=== PATIENT | male | born 1945 | race Caucasian/White ===

== ENCOUNTER 2025-01-27 15:21 | Emergency (ER) | payer OTHER, SELFPAY ==
[2025-01-27 15:29] VITALS: BP 177/78
--- NOTE | 2025-01-27 17:12 | ED.GENMED ---
History of Present Illness
<Rose Mock MD, Resident - Last Filed: 01/27/25 17:46>
General
Chief Complaint: Eye Problems
Source: patient and family
Exam Limitations: none
Time Seen by Provider: 01/27/25 16:53
Nursing documentation reviewed up to this point in time: agreed with
History of Present Illness
History of Present Illness:
79yo M with a hx of cataracts, CAD, HTN, COPD, & DM who presents with acute R eye pain.
Pt reports that he had his lens replaced about 10months ago (for cataracts, revision surgery). He was told the sutures used were dissolvable. This am while driving, the patient suddenly felt a scratchy, burning pain the R lateral eye. The pain
subsides when the eye is closed, painful (8/10) when open. Endorses watery tearing in eye, no purulent discharge or crusting. Endorses redness of the eye. Daughter says that she saw a black speck on the laterosuperior aspect of the R iris earlier
today. The pt applied lubricating eye drops earlier today, which made the burning worse. Denies any recent trauma to the eye / grit blowing into the eye. Denies any puritis of the eye or any vision changes/blurriness. Denies photophobia. Says it
feels like a suture is poking into his eye from inside.
The pt lives in [place] and is [place] from [place] of [place], has [facility] health insurance.
Past History
<Rose Mock MD, Resident - Last Filed: 01/27/25 17:46>
Past History
ED Past Medical History: CAD, COPD, Hypercholesterolemia and NIDDM
ED Past Surgical History: Other (bilat cataracts surgery )
Patient has exhibited threatening behavior?: No
Review of Systems
<Rose Mock MD, Resident - Last Filed: 01/27/25 17:46>
Review of Systems
Allergies reviewed?: Yes
All Other Systems: ROS reviewed and negative except as documented in HPI and ROS
Constitutional: Reports no symptoms
EENT: Reports tearing and other (R eye pain & redness)
Respiratory: Reports no symptoms
Cardiac: Reports no symptoms
ABD/GI: Reports no symptoms
: Reports no symptoms
Musculoskeletal: Reports no symptoms
Skin: Reports no symptoms
Neurological: Reports no symptoms
Psychiatric: Reports no symptoms
Phy Exam
<Rose Mock MD, Resident - Last Filed: 01/27/25 17:46>
General Physical Exam
General Presentation: mild distress
General age: appears stated age
General Skin: warm and dry
General Habitus: normal
General Mental: alert
Eye Exam
Eye Exam: PERRL, EOMI and other (R eye conjunctival injection; watery discharge; fluorescein exam reveals lateral corneal abrasion & speck of small, translucent protruding filament )
Cardiovascular Exam
Cardiovascular Exam: regular rate/rhythm
Pulmonary Exam
Pulmonary Exam: no respiratory distress
Gastrointestinal Exam
Gastrointestinal Exam: non distended
Neurological Exam
Neurological Exam: alert
Skin Exam
Skin Exam: normal color and warm/dry
Psychiatric Exam
Psychiatric Exam: normal mood/affect
Course
<Rose Mock MD, Resident - Last Filed: 01/27/25 17:46>
Vital Signs
Initial and Last Documented VS:
Initial Vital Signs
Temp Pulse Resp BP Pulse Ox
97.8 F 86 16 177/78 95
01/27/25 15:29 01/27/25 15:29 01/27/25 15:29 01/27/25 15:29 01/27/25 15:29
Last Documented Vital Signs
Temp Pulse Resp BP Pulse Ox
97.8 F 86 16 171/76 92
01/27/25 15:29 01/27/25 15:29 01/27/25 15:29 01/27/25 17:19 01/27/25 17:19
<Gerber Arndt, DO - Last Filed: 01/27/25 17:42>
Vital Signs
Initial and Last Documented VS:
Initial Vital Signs
Temp Pulse Resp BP Pulse Ox
97.8 F 86 16 177/78 95
01/27/25 15:29 01/27/25 15:29 01/27/25 15:29 01/27/25 15:29 01/27/25 15:29
Last Documented Vital Signs
Temp Pulse Resp BP Pulse Ox
97.8 F 86 16 171/76 92
01/27/25 15:29 01/27/25 15:29 01/27/25 15:29 01/27/25 17:19 01/27/25 17:19
<Rose Mock MD, Resident - Last Filed: 01/27/25 17:46>
MDM/Problems Addressed
Differential Diagnosis Includes:
Ddx:
Foreign body in eye (suture vs. grit)
Less likely:
Viral conjunctivitis
Acute angle closure glaucoma
Uveitis
Bacterial conjunctivitis
<Rose Mock MD, Resident - Last Filed: 01/27/25 17:46>
*Pulse Oximetry
SaO2: 95
Oxygen Mode of Delivery: Room air
Patient hypoxic: no
*Critical Care Note
Total Time (30-74mins, 75-104mins- exclusive of procedures): Not Applicable
<Rose Mock MD, Resident - Last Filed: 01/27/25 17:46>
Update Note
Update Note:
Small body not able to be removed with cotton swab under tetracaine
Pt should follow up with validation architect
Abx ppx in the meantime for abrasion, and eye patch for comfort
ED Attending Note
<Rose Mock MD, Resident - Last Filed: 01/27/25 17:46>
-
Portions of this chart may have been created with voice recognition software.� Occasional wrong word or��sound alike� substitutions may have occurred due to the inherent limitations of voice recognition software.
<Gerber Arndt, DO - Last Filed: 01/27/25 17:42>
ED Attending Note
Patient seen and examined by attending physician: Yes
I performed a history and physical exam of patient and discussed management with resident, I reviewed resident's note and agree with documented findings and plan of care.: Yes
ED Attending Note:
I have seen and evaluated the patient with a [id number] encounter. I have spoken to the resident and involved in the medical history, the physical exam, medical decision making.
Evaluation and management service: agree unless noted differently below.
Results interpretation: agree unless noted differently below.
Focused HPI: 79-year-old male presenting with right eye pain. Patient has a foreign body sensation. He had cataract surgery about 10 months ago. Daughter at bedside believes that she sees a foreign body
Physical exam: Right sclera injected pupils reactive. Fluorescein used showing small abrasion in the 9 o'clock position. Questionable foreign body seen which appears to look like suture material
Medical Decision Making: Patient started on erythromycin ointment. Discussed follow-up with ophthalmology
Discharge Plan
Departure
Patient Disposition: Home (Routine Discharge)
Date of Disposition: 01/27/25
Time of Disposition: 17:40
Patient with high blood pressure during this ER visit?: No
Condition: Fair
Covid-19: Not Applicable
Discharge Problem:
Abrasion, corneal
Instructions: Corneal Abrasion (DC), Foreign Body in Eye (DC)
Prescriptions:
New
erythromycin 5 mg/gram (0.5 %) ointment
0.5 inch ophthalmic (eye) QID 5 Days Qty: 3.5 0RF
Rx Instructions:
Instill ~0.5-inch ribbon of ointment into affected eye 4 times daily for 5 days
Referrals:
Latrell Huitron MD [Active, Ophthalmology] - Tomorrow
Referral Note: corneal abrasion, foreign object
Activity Restrictions/Additional Instructions:
You were seen in the ED for pain and foreign body sensation in the R eye. You were found to have a corneal abrasion and a small foreign body, which was not able to be removed with a cotton swab.
We have prescribed you an antibiotic ointment for your eye (erythromycin). Please apply ~0.5-inch ribbon of ointment into affected eye 4 times daily for 5 days.
Please follow up with an validation architect (we have provided information for a local one in [place], Dr. Huitron) as soon as possible.
Interventions
Interventions:
*Risk Screen - Suicide Last Done: 01/27/25 15:29
*General Assessment Last Done: 01/27/25 17:15
*Neglect/Abuse Screening Last Done: 01/27/25 17:15
*ED- Fall Risk Assessment Last Done: 01/27/25 17:15
*ED COVID-19 Vaccine History Last Done: 01/27/25 17:15
*ED Influenza Vaccine History Last Done: 01/27/25 17:15
Discharge Date and Time
Print Language: WOLOF
[2025-01-27 17:15] VITALS: BMI 28.8
[2025-01-27 17:19] VITALS: BP 171/76
== END 2025-01-27 18:08 | disposition home or self-care (01) ==
LOC: EMR 15:21
PROVIDERS: EMERGENCY PHYSICIAN Student in an Organized Health Care Education/Training Program
DX: T15.01XA Foreign body in cornea, right eye, initial encounter (principal); X58.XXXA Exposure to other specified factors, initial encounter; W44.9XXA Unspecified foreign body entering into or through a natural orifice, initial encounter; E11.9 Type 2 diabetes mellitus without complications; I25.10 Atherosclerotic heart disease of native coronary artery without angina pectoris; I10 Essential (primary) hypertension; E78.00 Pure hypercholesterolemia, unspecified; J44.9 Chronic obstructive pulmonary disease, unspecified; Z98.41 Cataract extraction status, right eye; Z98.42 Cataract extraction status, left eye
CPT/HCPCS: 99283